=== PATIENT | female | born 1965 | race Caucasian/White ===

== ENCOUNTER 2025-01-03 12:01 | Emergency (ER) | payer BC, SELFPAY ==
[2025-01-03 12:03] VITALS: BP 182/100
--- NOTE | 2025-01-03 12:17 | ED TECH ---
swabs were sent to the lab but unable to obtain blood work in triage. stuck 2x.
[2025-01-03 12:37] LABS: COVID-19 Antigen Negative (Negative)
--- NOTE | 2025-01-03 13:36 | ED.GENMED ---
History of Present Illness
General
Chief Complaint: Headache
Source: patient
Exam Limitations: none
Time Seen by Provider: 01/03/25 13:14
Nursing documentation reviewed up to this point in time: agreed with
History of Present Illness
History of Present Illness:
The patient is a 59-year-old female who presents with a severe headache that started on Saturday morning, three days ago. She describes the headache as constant and located behind her eyes. The headache began upon awakening on Saturday morning and has
persisted without relief despite taking naproxen and ibuprofen at home. The patient denies any history of migraine headaches although does have a history of a subarachnoid hemorrhage in 2019. She states that his current headache 'is totally
different than the aneurysm' stating that the subarachnoid hemorrhage was much more severe. She recently had her 5-year follow-up with [facility] in October 2024 where she had a normal CTA head.
She reports associated body aches and night sweats. She also reports generalized myalgias including backache and leg pain. She denies any neck pain or known fevers. She denies any blurry vision, double vision, dizziness, nausea/vomiting, ataxia,
dysarthria, or changes in mental status.
She suspects she might have contracted a virus, possibly COVID, after being with her grandchildren the day before the symptoms appeared.
Past History
Past History
ED Past Medical History: Other (SAH)
ED Past Surgical History: Other (coiling of brain aneurysm)
Social History
Tobacco: Smoker
Review of Systems
Review of Systems
Allergies reviewed?: Yes
All Other Systems: ROS reviewed and negative except as documented in HPI and ROS
Phy Exam
Physical Exam
Physical Exam:
Vitals: Hypertensive, otherwise vital signs stable.
General: Patient is uncomfortable appearing due to headache, eyes covered with blanket on initial evaluation
Skin: Warm and dry, no rashes or lesions
Head: Normocephalic, atraumatic
Eyes: Sclera nonicteric. Pupils equal round and reactive to light laterally. EOMs intact. No nystagmus.
Throat: Protecting airway
Neck: Normal ROM, no cervical spine tenderness, no meningismus
Cardiac: Regular rate and rhythm, no murmurs.
Pulm: Normal respiratory effort, no wheezes, rales, rhonchi heard on exam
.
Abdomen: Abdomen soft and nontender.
Back: No midline spinal tenderness
Extremities: No evidence of cyanosis or edema. Strength 5/5 in bilateral upper and lower extremity
Neuro: AAOx3. CN II-XII grossly intact on examination. Normal finger-nose. No focal neurologic deficits.
Psychiatric: Normal affect.
Course
Orders/Labs/Results
Orders:
Orders
01/03/25 12:11
COVID-19 Antigen Urgent
Source: Nasal Swab
Influenza A+B Rapid Molecular Urgent
MIGUELITO Source: Nasal Swab
Specimen Description:
01/03/25 13:29
CT Head W/o Iv Contrast Urgent
Comment: hx SAH
Reason For Exam: Headache x 3 days
0.9% Sodium Chloride 1000 ml [Nss] 1,000 ml IV BOLUS
Acetaminophen 1000MG/100Ml [Ofirmev] 1,000 mg in 100 ml IV ONCE
Acetaminophen IV Indication:: ED Narcotic Naive Pt-ONCE
01/03/25 13:33
Acetaminophen [Tylenol] 1,000 mg PO NOW STA
01/03/25 14:00
Complete Blood Count/With Diff Urgent
Comprehensive Metabolic Panel Urgent
Serum Osmolality Urgent
Comment: ADD ON
01/03/25 14:59
Add On- LAB Urgent
Tests Added?: serum osmolality
01/03/25 15:45
Ketorolac [Toradol] 15 mg IV NOW STA
01/03/25 16:54
Osmolality, Random Urine Urgent
Date Specimen was Collected: 01/03/25
Time Specimen was Collected: 16:51
Urine Sodium Urgent
Date Specimen was Collected: 06/15/25
Time Specimen was Collected: 16:51
Abnormal Lab Results
01/03/25 01/03/25
14:00 16:54
WBC 3.7 L 10^3/uL
(4.8-10.8)
MCH 32.1 H pg
(27.0-31.0)
Absolute Lymphs (auto) 0.4 L 10^3/uL
(1.2-3.4)
Neutrophils % 82.6 H %
(42.2-75.2)
Lymphocytes % 11.1 L %
(20.5-51.1)
Sodium 125 L mmol/L
(135-145)
Carbon Dioxide 19 L mmol/L
(22-30)
BUN 4 L mg/dl
(7-17)
Glucose 107 H mg/dl
(70-99)
Serum Osmolality 255 L mOsm/kg
(275-300)
AST 39 H U/L
(14-36)
Urine Osmolality 120 L mOsm/kg
(300-900)
Urine Sodium 17 L mmol/L
(30-90)
01/03/25 14:00
01/03/25 14:00
Vital Signs
Initial and Last Documented VS:
Initial Vital Signs
Temp Pulse Resp BP Pulse Ox
99.7 F 101 18 182/100 98
01/03/25 12:03 01/03/25 12:03 01/03/25 12:03 01/03/25 12:03 01/03/25 12:03
Last Documented Vital Signs
Temp Pulse Resp BP Pulse Ox
97.9 F 75 16 129/84 98
01/03/25 16:58 01/03/25 16:58 01/03/25 16:58 01/03/25 16:58 01/03/25 16:58
MDM/Problems Addressed
Differential Diagnosis Includes:
Not limited to: Migraine headache, tension headache, viral infection, sinusitis, cluster headache, subarachnoid hemorrhage, etc.
MDM/Problems Addressed:
The patient, a 59-year-old female with a history of subarachnoid hemorrhage from five years ago, presented with a three-day history of headache and myalgia. She reported no associated neurologic symptoms such as visual changes, trauma, vomiting, or
dizziness. The headache was not as severe as her previous subarachnoid hemorrhage. Upon examination, she appeared uncomfortable due to the headache but was not toxic-appearing. Neurologically, she was intact without focal deficits, and her
cerebellar function was normal.
Initial impression is likely viral infection due to the associated myalgia, but a broad differential was considered. Given hx SAH -will obtain CT head. Will check labs, viral studies, tx headache w/ tylenol and IVF.
Update: CT head without acute findings. Viral studies negative. Lab results significant for hyponatremia and acidosis of uncertain etiology. Possibly secondary to poor oral intake partly related to recent dental work/ headache. Will send urine
studies.
Admission was recommended due to hyponatremia of uncertain etiology, but the patient refused. I do suspect headache likely secondary to viral illness however unable to completely exclude symptomatic hyponatremia. Her headache has essentially
resolved following tx in ED. The patient was adamant about leaving the hospital despite recommendations for admission to address her hyponatremia and risk of worsening condition. She was discharged home with very strict return precautions and advice
to follow up closely with her primary care provider and have repeat lab work within 1 week. Case discussed with attending physician.
Chronic conditions affecting care:
History of subarachnoid hemorrhage
Acute Exacerbation and/or Progression of Chronic Illness:
N/A
*Radiology
Radiology exam reviewed: radiology read reviewed
*Pulse Oximetry
Patient hypoxic: no (98% on room air)
*EKG
Interpreted by ED Provider?: NA
*Automotive Sales Executive Interpretation
Rate: Automotive Sales Executive- N/A
*Critical Care Note
Total Time (30-74mins, 75-104mins- exclusive of procedures): Not Applicable
Patient Management
Escalation/DeEscalation of care consider admission/obs:
Admission recommended give hyponatremia of uncertain etiology for continues management
ED Attending Note
-
Portions of this chart may have been created with voice recognition software.� Occasional wrong word or��sound alike� substitutions may have occurred due to the inherent limitations of voice recognition software.
Discharge Plan
Departure
Patient Disposition: Home (Routine Discharge)
Date of Disposition: 01/03/25
Time of Disposition: 16:57
Patient with high blood pressure during this ER visit?: Yes
Discharge Problem:
Headache, Hyponatremia
Instructions: Headache, Adult (DC), Hyponatremia, BLOOD PRESSURE
Prescriptions:
No Action
nimodipine 30 MG capsule
2 cap PO Q4
Patient Comments:
take for 8 days (finishes 03/03/19)
Referrals:
Ck Alcantara MD [Family Provider, Family Practice] - Follow up in 2-3 days
Activity Restrictions/Additional Instructions:
RETURN TO THE EMERGENCY DEPARTMENT WITH ANY SEVERE HEADACHE/NECK PAIN, CHANGES IN MENTAL STATUS, NAUSEA/VOMITING, BALANCE DIFFICULTIES, LETHARGY, FEVERS, OR ANY OTHER CONCERNS
- As discussed�your sodium level was low at 125 while in the emergency department. It is very important that you stay well-hydrated and eat a balanced diet. You must follow-up with your primary care in a few days for further evaluation/management
and have a repeat lab work within the week to ensure sodium level is trending up
-Your head CT showed no acute abnormalities.
- Continue to take Tylenol and/or Motrin as needed for headache and bodyaches.
- Follow-up with primary care in a few days for further evaluation/management
Monitor your symptoms closely and return to the emergency department with any acute worsening/new symptoms or any other concerns
Interventions
Interventions:
*Risk Screen - Suicide Last Done: 01/03/25 13:42
*General Assessment Last Done: 01/03/25 13:42
*Neglect/Abuse Screening Last Done: 01/03/25 13:42
*ED- Fall Risk Assessment Last Done: 01/03/25 13:42
*ED COVID-19 Vaccine History Last Done: 01/03/25 13:42
*Nursing Disposition Last Done: 01/03/25 17:06
ED- Neurological Assessment Last Done: 01/03/25 13:42
Discharge Date and Time
Discharge Date/Time: 01/03/25 17:07
Print Language: GEORGIAN
[2025-01-03] MEDS: TYLENOL 1000 MG PO (13:45)
[2025-01-03] MEDS: NSS 1000 IV (13:59)
[2025-01-03 14:21] LABS: % Basophils 1.1 % (0-2); % Immature Granulocytes 0.3 % (0-0.5); % Lymphocytes 11.1 % (20.5-51.1); % Monocytes 4.9 % (1.7-9.3); % Neutrophils 82.6 % (42.2-75.2); Absolute Lymphocytes 0.4 10^3/uL (1.2-3.4); Absolute Monocytes 0.2 10^3/uL (0.1-0.6); Absolute Neutrophils 3.1 10^3/uL (1.4-6.5); Hematocrit 39.2 % (37.0-47.0); Hemoglobin 14.1 g/dL (12.0-16.0); Mean Corpuscular Hgb 32.1 pg (27.0-31.0); Mean Corpuscular Volume 89.3 fL (81.0-99.0); Mean Platelet Volume 8.2 fL (7.4-10.4); Nucleated Red Blood Cells % 0 %; Platelet Count 196 10^3/uL (130-400); Red Blood Cell Count 4.39 10^6/uL (4.20-5.40); Red Cell Dist. Width 12.9 % (11.5-14.5); White Blood Cell Count 3.7 10^3/uL (4.8-10.8)
[2025-01-03 14:45] LABS: ALT (SGPT) 22 U/L (0-35); AST (SGOT) 39 U/L (14-36); Albumin 4.6 g/dl (3.5-5.0); Alkaline Phosphatase 72 U/L (38-126); Blood Urea Nitrogen 4 mg/dl (7-17); Calcium 9.2 mg/dl (8.4-10.2); Carbon Dioxide 19 mmol/L (22-30); Chloride 98 mmol/L (98-107); Glucose 107 mg/dl (70-99); Potassium 4.2 mmol/L (3.5-5.1); Sodium 125 mmol/L (135-145); Total Bilirubin 0.7 mg/dl (0.2-1.3); Total Protein 7.7 g/dl (6.3-8.2); eGFR > 60.00
[2025-01-03 16:03] LABS: Osmolality Serum 255 mOsm/kg (275-300)
[2025-01-03] MEDS: TORADOL 15 MG IV (16:13)
[2025-01-03 16:58] VITALS: BP 129/84
[2025-01-03 17:06] LABS: Osmolality Urine 120 mOsm/kg (300-900)
[2025-01-03 17:15] LABS: Urine Sodium 17 mmol/L (30-90)
== END 2025-01-03 17:07 | disposition home or self-care (01) ==
LOC: EMR 12:01
PROVIDERS: Physician Assistant; EMERGENCY PHYSICIAN Emergency Medicine; FAMILY PHYSICIAN Student in an Organized Health Care Education/Training Program
DX: R51.9 Headache, unspecified (principal); R61 Generalized hyperhidrosis; M79.606 Pain in leg, unspecified; M54.9 Dorsalgia, unspecified; M79.10 Myalgia, unspecified site; E87.1 Hypo-osmolality and hyponatremia; R03.0 Elevated blood-pressure reading, without diagnosis of hypertension; F17.200 Nicotine dependence, unspecified, uncomplicated; Z86.79 Personal history of other diseases of the circulatory system; F19.11 Other psychoactive substance abuse, in remission
CPT/HCPCS: 99284; 96374; 96375; 96361; 70450; 80053; 83930; 83935; 84300; 85025; 87502; 87811

== ENCOUNTER 2025-01-04 09:14 | Emergency (ER) | payer BC, SELFPAY ==
[2025-01-04 09:20] VITALS: BP 143/97
[2025-01-04 09:53] VITALS: BP 155/102; BMI 20.7
[2025-01-04 09:54] VITALS: BP 155/102
[2025-01-04 10:00] VITALS: BP 144/101
[2025-01-04 10:14] LABS: Hematocrit 39.9 % (37.0-47.0); Hemoglobin 14.5 g/dL (12.0-16.0); Mean Corp Hgb Conc. 36.3 g/dL (33.0-37.0); Mean Corpuscular Hgb 32.4 pg (27.0-31.0); Mean Corpuscular Volume 89.3 fL (81.0-99.0); Mean Platelet Volume 8.1 fL (7.4-10.4); Platelet Count 149 10^3/uL (130-400); Red Blood Cell Count 4.47 10^6/uL (4.20-5.40); White Blood Cell Count 3.4 10^3/uL (4.8-10.8)
[2025-01-04 10:18] LABS: ALT (SGPT) 43 U/L (0-35); AST (SGOT) 67 U/L (14-36); Albumin 4.4 g/dl (3.5-5.0); Alkaline Phosphatase 75 U/L (38-126); Blood Urea Nitrogen 5 mg/dl (7-17); Calcium 9.2 mg/dl (8.4-10.2); Carbon Dioxide 24 mmol/L (22-30); Chloride 99 mmol/L (98-107); Estimated Creatinine Clearance 97 ml/min; Glucose 139 mg/dl (70-99); Magnesium 1.9 mg/dl (1.6-2.3); Potassium 3.7 mmol/L (3.5-5.1); Sodium 128 mmol/L (135-145); Total Bilirubin 0.6 mg/dl (0.2-1.3); Total Protein 7.4 g/dl (6.3-8.2); eGFR > 60.00
[2025-01-04 11:00] VITALS: BP 134/104
[2025-01-04] MEDS: NSS 1000 IV (11:11)
[2025-01-04] MEDS: TORADOL 15 MG IV (11:11)
--- NOTE | 2025-01-04 11:41 | ED.GENMED ---
History of Present Illness
General
Chief Complaint: Headache
Source: patient
Exam Limitations: none
Time Seen by Provider: 01/04/25 09:33
Nursing documentation reviewed up to this point in time: agreed with
History of Present Illness
History of Present Illness:
Patient treated in ED yesterday secondary to headache but incidentally found to have hyponatremia, presents to ED secondary to continued headache upon waking up this morning. Patient contacted her primary care physician who recommended patient come
to ED for an evaluation secondary to low sodium level. Patient does however, states that her symptoms are much improved from when she was seen in ED yesterday. Denies fever or chills. Denies dizziness. Denies nausea or vomiting. Denies blurred
vision. Denies loss of sensation or weakness. Denies chest pain. Denies abdominal pain. Denies diarrhea.
Past History
Past History
ED Past Medical History: Other (SAH)
ED Past Surgical History: Other (coiling of brain aneurysm)
Social History
Tobacco: Smoker
Review of Systems
Review of Systems
Allergies reviewed?: Yes
All Other Systems: ROS reviewed and negative except as documented in HPI and ROS
Constitutional: Reports no symptoms
Respiratory: Reports no symptoms
Cardiac: Reports no symptoms
ABD/GI: Reports no symptoms
Musculoskeletal: Reports no symptoms
Skin: Reports no symptoms
Neurological: Reports headache
Phy Exam
Physical Exam
Physical Exam:
Physical Exam
General: no apparent distress, not acutely ill. afebrile
Head: nc/at. eomi. no nystagmus.
Neck: supple. no meningeal signs.
Heart: s1/s2 regular rate and rhythm
Lungs: no acute respiratory distress. clear bilaterally
Abdomen: normal bowel sounds. not tender.
Neuro: alert and oriented x 3. no focal neurological deficits
Skin: no rash
Psychiatric: well kept. interactive and cooperative
Extremities: no edema. no calf tenderness.
Course
Orders/Labs/Results
Orders:
Orders
01/04/25 09:51
Complete Blood Count/With Diff Urgent
Comprehensive Metabolic Panel Urgent
Magnesium Urgent
Manual Differential Urgent
01/04/25 10:46
0.9% Sodium Chloride 1000 ml [Nss] 1,000 ml IV BOLUS
Ketorolac [Toradol] 15 mg IV NOW STA
Abnormal Lab Results
01/04/25
09:51
WBC 3.4 L 10^3/uL
(4.8-10.8)
MCH 32.4 H pg
(27.0-31.0)
Band Neutrophils 13 H %
(0-3)
Lymphocytes (Manual) 14 L %
(20-51)
Sodium 128 L mmol/L
(135-145)
BUN 5 L mg/dl
(7-17)
Glucose 139 H mg/dl
(70-99)
AST 67 H U/L
(14-36)
ALT 43 H U/L
(0-35)
01/04/25 09:51
01/04/25 09:51
Vital Signs
Initial and Last Documented VS:
Initial Vital Signs
Temp Pulse Resp BP Pulse Ox
98.2 F 105 18 143/97 100
01/04/25 09:20 01/04/25 09:20 01/04/25 09:20 01/04/25 09:20 01/04/25 09:20
Last Documented Vital Signs
Temp Pulse Resp BP Pulse Ox
98.5 F 78 18 130/92 96
01/04/25 09:54 01/04/25 13:05 01/04/25 13:05 01/04/25 13:05 01/04/25 13:05
MDM/Problems Addressed
MDM/Problems Addressed:
Blood work significant for persisting hyponatremia, but improved from last night. In addition, patient clinically appears well and subjectively states that she feels much improved than yesterday. As such, decision made to discharge patient home
with recommendation to continue hydration at home, along with PCP follow-up as an outpatient, with recommendation to repeat blood work over the next 1 to 2 weeks. Patient will return to ED with worsening symptoms
*Critical Care Note
Total Time (30-74mins, 75-104mins- exclusive of procedures): Not Applicable
ED Attending Note
-
Portions of this chart may have been created with voice recognition software.� Occasional wrong word or��sound alike� substitutions may have occurred due to the inherent limitations of voice recognition software.
Discharge Plan
Departure
Patient Disposition: Home (Routine Discharge)
Patient with high blood pressure during this ER visit?: Yes
Condition: Fair
Discharge Problem:
Headache, Hyponatremia
Instructions: Headache, Adult (DC), Hyponatremia
Prescriptions:
No Action
trazodone 100 mg Tablet
100 mg PO HS
varenicline tartrate [Chantix] 1 mg Tablet
1 mg PO BID
Referrals:
Carla Wu MD [Family Provider, Internal Medicine]
Activity Restrictions/Additional Instructions:
As discussed, please follow-up with your primary care physician for reevaluation, including repeat blood work over the next 1 to 2 weeks. In the meantime, recommend Tylenol/Motrin for headache along with increased fluid intake. Please consider
return to ED with worsening symptoms.
Interventions
Interventions:
*Risk Screen - Suicide Last Done: 01/04/25 09:20
*General Assessment Last Done: 01/04/25 09:20
*Neglect/Abuse Screening Last Done: 01/04/25 09:20
*ED- Fall Risk Assessment Last Done: 01/04/25 09:54
*ED COVID-19 Vaccine History Last Done: 01/04/25 09:54
*Nursing Disposition Last Done: 01/04/25 13:06
ED- Neurological Assessment Last Done: 01/04/25 09:54
Discharge Date and Time
Discharge Date/Time: 01/04/25 13:23
Print Language: [id number]
[2025-01-04 12:28] LABS: Segmented Neutrophils 64 % (42-75)
[2025-01-04 12:29] LABS: Absolute Neutrophils -Man Diff 2.6 10^3/uL (1.4-6.5); Atypical Lymphocytes 7 %; Band Neutrophils 13 % (0-3); Lymphocytes 14 % (20-51); Monocytes 2 % (2-9); Platelets Checked Yes
[2025-01-04 12:30] LABS: Normal RBC Morphology Yes
[2025-01-04 12:31] LABS: Total Cells Counted 100
[2025-01-04 13:05] VITALS: BP 130/92
== END 2025-01-04 13:23 | disposition home or self-care (01) ==
LOC: EMR 09:14
PROVIDERS: EMERGENCY PHYSICIAN Emergency Medicine; FAMILY PHYSICIAN Psychiatry & Neurology Epilepsy
DX: R51.9 Headache, unspecified (principal); E87.1 Hypo-osmolality and hyponatremia; F17.200 Nicotine dependence, unspecified, uncomplicated
CPT/HCPCS: 96374; 96361; 99284; 80053; 83735; 85025